=== PATIENT | female | born 1945 | race Two or more races ===

== ENCOUNTER 2017-07-03 14:06 | Outpatient (CLI) | payer OTHER ==
[~2017-07-03 14:06] MED LIST: CATAFLAM50 MG PO; CIPRO500 MG PO; RECTICARE30 GM TP; ULTRACET PO
== END 2017-07-03 17:00 | disposition home or self-care (01) ==
LOC: MAMO-SONO 14:06
DX: Z12.31 Encounter for screening mammogram for malignant neoplasm of breast (principal); Z87.898 Personal history of other specified conditions; Z12.39 Encounter for other screening for malignant neoplasm of breast

== ENCOUNTER 2017-08-12 07:18 | Outpatient (CLI) | payer OTHER | END 2017-08-12 17:00 | disposition home or self-care (01) | LOC: MRI 07:18 | DX: K86.2 Cyst of pancreas (principal); R63.4 Abnormal weight loss | CPT/HCPCS: 74181; 74183; A9579 ==

== ENCOUNTER 2018-03-20 15:11 | Outpatient (CLI) | payer OTHER | END 2018-03-20 15:46 | disposition home or self-care (01) | LOC: SONOGRAMA 15:11 | DX: E03.8 Other specified hypothyroidism (principal); E04.1 Nontoxic single thyroid nodule ==

== ENCOUNTER → 2018-03-26 12:40 | Outpatient (CLI) | payer OTHER | END | disposition home or self-care (01) | LOC: LAB 12:40 | DX: K57.30 Diverticulosis of large intestine without perforation or abscess without bleeding (principal); Z51.81 Encounter for therapeutic drug level monitoring ==

== ENCOUNTER 2018-04-10 08:51 | Outpatient (CLI) | payer OTHER | END 2018-04-10 08:56 | disposition home or self-care (01) | LOC: SONOGRAMA 08:51 | DX: E04.1 Nontoxic single thyroid nodule (principal) ==

== ENCOUNTER 2018-04-24 14:45 | Outpatient (CLI) | payer OTHER | END 2018-04-24 14:55 | disposition home or self-care (01) | LOC: MRI 14:45 | DX: G30.1 Alzheimer's disease with late onset (principal) | CPT/HCPCS: 70551 ==

== ENCOUNTER 2018-05-22 08:15 | Outpatient (CLI) | payer OTHER | END 2018-05-22 08:26 | disposition home or self-care (01) | LOC: MRI 08:15 | DX: K57.30 Diverticulosis of large intestine without perforation or abscess without bleeding (principal); K85.90 Acute pancreatitis without necrosis or infection, unspecified | CPT/HCPCS: 74183; A9579; 74181 ==

== ENCOUNTER 2018-05-22 08:41 | Outpatient (CLI) | payer OTHER | END 2018-05-22 08:52 | disposition home or self-care (01) | LOC: LAB 08:41 | DX: K57.30 Diverticulosis of large intestine without perforation or abscess without bleeding (principal); Z51.81 Encounter for therapeutic drug level monitoring ==

== ENCOUNTER 2019-05-06 14:44 | Outpatient (CLI) | payer OTHER | END 2019-05-06 14:59 | disposition home or self-care (01) | LOC: NUCLEAR 14:44 | DX: M81.0 Age-related osteoporosis without current pathological fracture (principal) ==

== ENCOUNTER → 2019-05-09 08:20 | Outpatient (CLI) | payer OTHER | END | disposition home or self-care (01) | LOC: LAB 08:20 | DX: E03.8 Other specified hypothyroidism (principal); E11.65 Type 2 diabetes mellitus with hyperglycemia; E78.2 Mixed hyperlipidemia; D64.89 Other specified anemias; N39.0 Urinary tract infection, site not specified; E55.9 Vitamin D deficiency, unspecified; K30 Functional dyspepsia; K86.2 Cyst of pancreas; K86.1 Other chronic pancreatitis; M17.0 Bilateral primary osteoarthritis of knee ==

== ENCOUNTER 2019-05-18 07:43 | Outpatient (CLI) | payer OTHER | END 2019-05-18 07:45 | disposition home or self-care (01) | LOC: MRI 07:43 | DX: K30 Functional dyspepsia (principal); K86.2 Cyst of pancreas; K86.1 Other chronic pancreatitis | CPT/HCPCS: 74183; A9575 ==

== ENCOUNTER 2019-08-12 10:58 | Emergency (ER) | payer OTHER ==
[~2019-08-12] VITALS: Ht 154.9 cm; Wt 61.2 kg
[2019-08-12] MEDS ORDERED: FOSAMAX PLUS D1 EACH PO (11:09)
[2019-08-12] MEDS ORDERED: SYNTHROID75 MCG PO (11:09)
[2019-08-12] MEDS ORDERED: SIMVASTATIN40 MG PO (11:10)
[2019-08-12] MEDS ORDERED: ORPHENADRINE C100 MG PO (16:29)
[2019-08-12] MEDS ORDERED: KETO10TA2 PO (16:29)
== END 2019-08-12 16:56 | disposition home or self-care (01) ==
LOC: ER 10:58
DX: M54.5 Low back pain (principal)

== ENCOUNTER 2019-08-14 10:17 | Outpatient (CLI) | payer OTHER ==
[~2019-08-14 10:17] MED LIST changes: +FOSAMAX PLUS D1 EACH PO; +KETO10TA2 PO; +ORPHENADRINE C100 MG PO; +SIMVASTATIN40 MG PO; +SYNTHROID75 MCG PO
== END 2019-08-14 10:20 | disposition home or self-care (01) ==
LOC: RAD 10:17
DX: M25.551 Pain in right hip (principal); M25.552 Pain in left hip

== ENCOUNTER 2019-11-25 14:33 | Outpatient (CLI) | payer OTHER ==
[~2019-11-25 14:33] MED LIST changes: +NAPR500T14 PO
== END 2019-11-25 14:37 | disposition home or self-care (01) ==
LOC: SONOGRAMA 14:33
PROVIDERS: ATTEND Internal Medicine Endocrinology, Diabetes & Metabolism
DX: E04.1 Nontoxic single thyroid nodule (principal)

== ENCOUNTER 2020-02-20 10:39 | Outpatient (CLI) | payer OTHER | END 2020-02-20 10:49 | disposition home or self-care (01) | LOC: RAD 10:39 | PROVIDERS: ATTEND Internal Medicine Rheumatology | DX: M17.0 Bilateral primary osteoarthritis of knee (principal); M51.85 Other intervertebral disc disorders, thoracolumbar region ==

== ENCOUNTER 2020-08-11 14:01 | Outpatient (CLI) | payer OTHER | END 2020-08-11 14:13 | disposition home or self-care (01) | LOC: MAMO-SONO 14:01 | PROVIDERS: ATTEND Internal Medicine Endocrinology, Diabetes & Metabolism | DX: Z12.31 Encounter for screening mammogram for malignant neoplasm of breast (principal); Z87.898 Personal history of other specified conditions; N61.0 Mastitis without abscess; N64.4 Mastodynia ==

== ENCOUNTER → 2021-02-21 | Outpatient (CLI) | payer OTHER | END | disposition home or self-care (01) | LOC: RAD 13:22 | PROVIDERS: ATTEND Internal Medicine Rheumatology | DX: M17.0 Bilateral primary osteoarthritis of knee (principal) ==

== ENCOUNTER → 2021-03-07 13:31 | Outpatient (CLI) | payer OTHER | END | disposition home or self-care (01) | LOC: NUCLEAR 13:31 | PROVIDERS: ATTEND Internal Medicine Endocrinology, Diabetes & Metabolism | DX: M81.0 Age-related osteoporosis without current pathological fracture (principal) ==

== ENCOUNTER 2021-09-18 11:49 | Emergency (ER) | payer OTHER ==
[~2021-09-18] VITALS: Ht 149.9 cm; Wt 61.7 kg
[2021-09-18] MEDS ORDERED: METOPROLOL SUCC25 MG PO (12:23)
[2021-09-18] MEDS ORDERED: ZITHROMAX500 MG PO (15:52)
== END 2021-09-18 16:53 | disposition home or self-care (01) ==
LOC: ER 11:49
DX: B34.9 Viral infection, unspecified (principal); I10 Essential (primary) hypertension; Z20.822 Contact with and (suspected) exposure to COVID-19

== ENCOUNTER 2021-10-31 14:45 | Outpatient (CLI) | payer OTHER ==
[~2021-10-31 14:45] MED LIST changes: +METOPROLOL SUCC25 MG PO; +ZITHROMAX500 MG PO
== END 2021-10-31 15:10 | disposition home or self-care (01) ==
LOC: MAMO-SONO 14:45
PROVIDERS: ATTEND Internal Medicine Endocrinology, Diabetes & Metabolism
DX: N64.4 Mastodynia (principal); E04.1 Nontoxic single thyroid nodule

== ENCOUNTER 2021-12-05 07:24 | Outpatient (CLI) | payer OTHER | END 2021-12-05 07:47 | disposition home or self-care (01) | LOC: TOM 07:24 → MRI 07:24 | PROVIDERS: ATTEND Internal Medicine Gastroenterology | DX: K86.1 Other chronic pancreatitis (principal) | CPT/HCPCS: 74183; Q9965; 74182 ==

== ENCOUNTER 2022-02-21 07:06 | Outpatient (CLI) | payer OTHER | END 2022-02-21 07:17 | disposition home or self-care (01) | LOC: SONOGRAMA 07:06 → MAMO-SONO 07:06 | PROVIDERS: ATTEND Internal Medicine Endocrinology, Diabetes & Metabolism | DX: E04.1 Nontoxic single thyroid nodule (principal); M17.9 Osteoarthritis of knee, unspecified ==

== ENCOUNTER 2022-05-23 14:44 | Outpatient (CLI) | payer OTHER | END 2022-05-23 14:49 | disposition home or self-care (01) | LOC: LAB 14:44 | PROVIDERS: ATTEND Internal Medicine Gastroenterology | DX: Z11.52 Encounter for screening for COVID-19 (principal); Z20.822 Contact with and (suspected) exposure to COVID-19; Z20.828 Contact with and (suspected) exposure to other viral communicable diseases ==

== ENCOUNTER → 2022-07-31 | Outpatient (CLI) | payer OTHER | END | disposition home or self-care (01) | LOC: RAD 14:43 | PROVIDERS: ATTEND Otolaryngology | DX: R05.1 Acute cough (principal) ==

== ENCOUNTER 2022-08-07 13:48 | Outpatient (CLI) | payer OTHER | END 2022-08-07 14:00 | disposition home or self-care (01) | LOC: TOM 13:48 | PROVIDERS: ATTEND Otolaryngology | DX: M54.2 Cervicalgia (principal); R59.1 Generalized enlarged lymph nodes ==

== ENCOUNTER 2022-08-09 08:14 | Outpatient (CLI) | payer OTHER | END 2022-08-09 08:20 | disposition home or self-care (01) | LOC: SONOGRAMA 08:14 | PROVIDERS: ATTEND Pathology Anatomic Pathology & Clinical Pathology | DX: D44.0 Neoplasm of uncertain behavior of thyroid gland (principal); E07.9 Disorder of thyroid, unspecified; E04.2 Nontoxic multinodular goiter ==

== ENCOUNTER → 2022-09-12 | Outpatient (CLI) | payer OTHER | END | disposition home or self-care (01) | LOC: RAD 14:37 | PROVIDERS: ATTEND Orthopaedic Surgery | DX: M25.562 Pain in left knee (principal); M25.561 Pain in right knee ==

== ENCOUNTER 2022-09-27 12:47 | Emergency (ER) | payer OTHER ==
[~2022-09-27] VITALS: Ht 152.4 cm; Wt 61.2 kg
== END 2022-09-27 15:54 | disposition home or self-care (01) ==
LOC: ER 12:47
DX: J02.8 Acute pharyngitis due to other specified organisms (principal); Z20.822 Contact with and (suspected) exposure to COVID-19

== ENCOUNTER 2022-12-20 07:15 | Inpatient (IN) | payer OTHER ==
[~2022-12-20] VITALS: Ht 154.9 cm; Wt 61.2 kg
[2022-12-25] MEDS ORDERED: LATANOPROST2.5 ML (16:03)
[2022-12-25] MEDS ORDERED: FAMOTIDINE40 MG (16:03)
[2022-12-25] MEDS ORDERED: BRIMONIDINE-TIMO5 ML (16:03)
[2022-12-26] MEDS ORDERED: CEFADROXIL500 MG PO (08:14)
[2022-12-26] MEDS ORDERED: ELIQUIS2.5 MG PO (08:14)
[2022-12-26] MEDS ORDERED: PERCOCET 5-3251 EACH PO (08:14)
== END 2022-12-27 22:56 | DRG 470 ==
LOC: O/R 12-25 06:40 → SURG 12-25 07:15
PROVIDERS: ADMIT Orthopaedic Surgery; ATTEND Orthopaedic Surgery
PROC: 8E0Y0CZ Robotic Assisted Procedure of Lower Extremity, Open Approach (ICD-10-PCS; 2022-12-25)
PROC: 0SRC0J9 Replacement of Right Knee Joint with Synthetic Substitute, Cemented, Open Approach (ICD-10-PCS; principal; 2022-12-25 17:15)
DX: M17.11 Unilateral primary osteoarthritis, right knee (principal); D62 Acute posthemorrhagic anemia; M22.11 Recurrent subluxation of patella, right knee; E03.9 Hypothyroidism, unspecified; Z96.651 Presence of right artificial knee joint

== ENCOUNTER 2023-03-26 14:35 | Outpatient (CLI) | payer OTHER ==
[~2023-03-26 14:35] MED LIST changes: +BRIMONIDINE-TIMO5 ML; +CEFADROXIL500 MG PO; +ELIQUIS2.5 MG PO; +FAMOTIDINE40 MG; +LATANOPROST2.5 ML; +PERCOCET 5-3251 EACH PO
== END 2023-03-26 14:42 | disposition home or self-care (01) ==
LOC: MAMO-SONO 14:35
PROVIDERS: ATTEND Family Medicine
DX: Z12.31 Encounter for screening mammogram for malignant neoplasm of breast (principal)

== ENCOUNTER 2023-09-11 12:26 | Outpatient (CLI) | payer OTHER | END 2023-09-11 12:39 | disposition home or self-care (01) | LOC: SONOGRAMA 12:26 | PROVIDERS: ATTEND Family Medicine | DX: Z12.31 Encounter for screening mammogram for malignant neoplasm of breast (principal); N60.29 Fibroadenosis of unspecified breast; D21.0 Benign neoplasm of connective and other soft tissue of head, face and neck ==

== ENCOUNTER 2023-11-29 07:20 | Inpatient (IN) | payer OTHER ==
[~2023-11-29] VITALS: Ht 152.4 cm; Wt 62.6 kg
[2023-11-29 08:18] LABS: HEMATOCRIT 35.2 % (36.0-45.00); HEMOGLOBIN 11.8 g/dL (12.0-15.00); MEAN CELL VOLUME 86.2 fL (80.00-100.00); MEAN CORPUSCULAR HEMOGLOBIN 28.9 pg (27.00-32.0); MEAN CORPUSCULAR HGB CONC 33.5 g/dl (32.0-36.0); PLATELET COUNT 343 K/uL (150-450); RED BLOOD COUNT 4.08 M/uL (4.00-6.00); RED CELL DISTRIBUTION WIDTH 15.8 % (11.5-14.5)
[2023-11-29 08:22] LABS: PH,URINE 6.5 (5.0-8.0); URINE APPEARANCE Clear; URINE BILIRRUBIN Negative (NEGATIVE); URINE BLOOD Trace; URINE COLOR Yellow; URINE GLUCOSE Negative (NEGATIVE); URINE LEUKOCYTE Moderate; URINE NITRATE Negative; URINE PROTEIN Negative (NEGATIVE); URINE UROBILINOGEN 0.2 E.U./dl
[2023-11-29 08:27] LABS: URINE BACTERIA 1950.3 uL (0.0-1933); URINE EPITHELIAL CELLS 57.7 uL (0.0-38.8); URINE RBC 18.1 uL (0.0-20.8); URINE WBC 70.4 uL (0.0-23.2)
[2023-11-29 08:52] LABS: INR 0.96; PARTIAL THROMBOPLASTIN TIME 28.6 SECONDS (22.0-34.0); PROTHROMBIN TIME 10.1 SECONDS (9.0-11.5)
[2023-11-29 10:11] LABS: URINE YEAST FEW /hpf
[2023-11-29 10:21] LABS: ALBUMIN 3.8 gm/dL (3.4-5.0); BILIRUBIN TOTAL 0.48 mg/dL (0.3-1.2); CALCIUM 9.1 mg/dL (8.5-10.1); CREATININE SERUM 0.55 mg/dL (0.55-1.02); GFR 106.9; GLOBULINA 3.8 G/DL (2.4-3.5); POTASSIUM 4.42 mEq/L (3.5-5.1); TOTAL PROTEIN 7.6 gm/dL (6.4-8.2)
[2023-12-10] MEDS ORDERED: DONEPEZIL HCL5 MG (10:47)
[2023-12-10] MEDS ORDERED: BISOPROLOL FUMAR5 MG (10:47)
[2023-12-10] MEDS ORDERED: GABAPENTIN300 M2 (10:47)
[2023-12-10] MEDS ORDERED: MORPHINE SULFATE 4 MG/ML CARTRIDGE IV PRN (13:45)
[2023-12-10] MEDS ORDERED: SODIUM CHLORIDE 0.45 % 1,000 ML IV SCH (13:45)
[2023-12-10] MEDS ORDERED: OxyCODONE HCL 5 MG TABLET (ROXICODONE) PO PRN (13:45)
[2023-12-10] MEDS ORDERED: ONDANSETRON HCL 2 MG/ML VIAL IV PRN (13:45)
[2023-12-10] MEDS ORDERED: TRANEXAMIC ACID 100MG/1ML (1000MG) AMPUL IV ONE ×2 (14:30)
[2023-12-10] MEDS ORDERED: CEFAZOLIN SODIUM 1,000 MG VIAL IV ONE (14:30)
[2023-12-10] MEDS ORDERED: KETOROLAC TROMETHAMINE 60 MG VIAL IM ONE (14:30)
[2023-12-10] MEDS ORDERED: MORPHINE SULFATE 4 MG/ML VIAL IV ONE (14:30)
[2023-12-10] MEDS ORDERED: CEFAZOLIN SODIUM 1,000 MG VIAL IV SCH (17:00)
[2023-12-10] MEDS ORDERED: GABAPENTIN 300 MG CAPSULE PO SCH (17:00)
[2023-12-10] MEDS ORDERED: ACETAMINOPHEN 500 MG GEL..CAP PO SCH (18:00)
[2023-12-11 07:00] LABS: HEMATOCRIT 35.5 % (36.0-45.00); HEMOGLOBIN 11.8 g/dL (12.0-15.00); MEAN CELL VOLUME 84.7 fL (80.00-100.00); MEAN CORPUSCULAR HEMOGLOBIN 28.2 pg (27.00-32.0); MEAN CORPUSCULAR HGB CONC 33.3 g/dl (32.0-36.0); PLATELET COUNT 352 K/uL (150-450); RED BLOOD COUNT 4.19 M/uL (4.00-6.00); RED CELL DISTRIBUTION WIDTH 15.7 % (11.5-14.5)
[2023-12-11] MEDS ORDERED: PERCOCET 5-3251 EACH PO (07:56)
[2023-12-11] MEDS ORDERED: CEFADROXIL500 MG PO (07:56)
[2023-12-11] MEDS ORDERED: ELIQUIS2.5 MG PO (07:56)
[2023-12-11] MEDS ORDERED: APIXABAN 2.5 MG TABLET PO SCH ×3 (09:00→17:00)
[2023-12-11] MEDS ORDERED: SENNOSIDES 1 TAB TABLET PO SCH (09:00)
[2023-12-11] MEDS ORDERED: SOD FERRIC GLUC COMPLX/SUCROSE 62.5 MG/5 ML AMPUL IV SCH (17:00)
[2023-12-11] MEDS ORDERED: Cyanocobalamin/Mecobalamin 1 TAB.SL SL SCH (17:00)
[2023-12-11] MEDS ORDERED: VITAMIN B COMPLEX 1 EACH PO SCH (17:00)
[2023-12-12 07:34] LABS: HEMATOCRIT 33.1 % (36.0-45.00); HEMOGLOBIN 10.8 g/dL (12.0-15.00); MEAN CORPUSCULAR HEMOGLOBIN 27.9 pg (27.00-32.0); MEAN CORPUSCULAR HGB CONC 32.8 g/dl (32.0-36.0); PLATELET COUNT 330 K/uL (150-450); RED BLOOD COUNT 3.89 M/uL (4.00-6.00); RED CELL DISTRIBUTION WIDTH 15.6 % (11.5-14.5)
[2023-12-12] MEDS ORDERED: IRON FUM,PS/FOLIC ACID/VITC/B3 1 CAP CAPSULE PO SCH (09:00)
== END 2023-12-12 14:21 | disposition home or self-care (01) | DRG 470 ==
LOC: OB/GYN 12-10 06:36 → O/R 12-10 06:36 → SURH 12-10 07:30 → OB/GYN 12-10 15:39
PROVIDERS: ADMIT Orthopaedic Surgery; ATTEND Orthopaedic Surgery
PROC: 0MNN0ZZ Release Right Knee Bursa and Ligament, Open Approach (ICD-10-PCS; 2023-12-10)
PROC: 0SUD07Z Supplement Left Knee Joint with Autologous Tissue Substitute, Open Approach (ICD-10-PCS; 2023-12-10)
PROC: 0SRD0J9 Replacement of Left Knee Joint with Synthetic Substitute, Cemented, Open Approach (ICD-10-PCS; principal; 2023-12-10 10:15)
DX: M17.12 Unilateral primary osteoarthritis, left knee (principal); M22.12 Recurrent subluxation of patella, left knee

== ENCOUNTER 2024-01-17 11:41 | Outpatient (CLI) | payer OTHER ==
[~2024-01-17 11:41] MED LIST changes: +BISOPROLOL FUMAR5 MG; +DONEPEZIL HCL5 MG; +GABAPENTIN300 M2
[2024-01-17 12:15] LABS: HEMATOCRIT 32.6 % (36.0-45.00); HEMOGLOBIN 10.7 g/dL (12.0-15.00); MEAN CELL VOLUME 86.1 fL (80.00-100.00); MEAN CORPUSCULAR HEMOGLOBIN 28.3 pg (27.00-32.0); MEAN CORPUSCULAR HGB CONC 32.9 g/dl (32.0-36.0); PLATELET COUNT 379 K/uL (150-450); RED BLOOD COUNT 3.79 M/uL (4.00-6.00); RED CELL DISTRIBUTION WIDTH 15.9 % (11.5-14.5)
[2024-01-17 12:38] LABS: PH,URINE 5.5 (5.0-8.0); URINE APPEARANCE Clear; URINE BILIRRUBIN Negative (NEGATIVE); URINE COLOR Yellow; URINE GLUCOSE Negative (NEGATIVE); URINE KETONE Negative (NEGATIVE); URINE LEUKOCYTE Negative; URINE NITRATE Negative; URINE PROTEIN Negative (NEGATIVE); URINE UROBILINOGEN 0.2 E.U./dl
[2024-01-17 12:42] LABS: URINE BACTERIA 61.7 uL (0.0-1933); URINE EPITHELIAL CELLS 24.2 uL (0.0-38.8); URINE RBC 8.8 uL (0.0-20.8); URINE WBC 1.8 uL (0.0-23.2)
[2024-01-17 12:45] LABS: URINE CAST 0.15 uL (0.0-1.40)
[2024-01-17 12:46] LABS: URINE BLOOD TRACE
[2024-01-17 13:26] LABS: ALBUMIN 3.7 gm/dL (3.4-5.0); BILIRUBIN TOTAL 0.32 mg/dL (0.3-1.2); CALCIUM 9.2 mg/dL (8.5-10.1); CHOL HDL RATIO 4.8 (0-5.0); CREATININE SERUM 0.52 mg/dL (0.55-1.02); FREE TRIODOTIRONINE 2.37 pg/ml (2.18-3.98); GFR 114.04; GLOBULINA 3.6 G/DL (2.4-3.5); POTASSIUM 4.45 mEq/L (3.5-5.1); T4 FREE 1.23 NG/ML (0.76-1.46); TOTAL PROTEIN 7.3 gm/dL (6.4-8.2); TSH 3.49 uIU/mL (0.358-3.74)
== END 2024-01-17 11:44 | disposition home or self-care (01) ==
LOC: LAB 11:41
PROVIDERS: ATTEND Internal Medicine Endocrinology, Diabetes & Metabolism
DX: E03.9 Hypothyroidism, unspecified (principal); D64.9 Anemia, unspecified; E78.2 Mixed hyperlipidemia; I10 Essential (primary) hypertension; E55.9 Vitamin D deficiency, unspecified; N39.0 Urinary tract infection, site not specified

== ENCOUNTER 2024-02-24 07:18 | Outpatient (CLI) | payer OTHER | END 2024-02-24 07:22 | disposition home or self-care (01) | LOC: SONOGRAMA 07:18 | PROVIDERS: ATTEND Internal Medicine Gastroenterology | DX: R10.13 Epigastric pain (principal); K57.30 Diverticulosis of large intestine without perforation or abscess without bleeding; Z86.010 Personal history of colon polyps ==

== ENCOUNTER 2024-05-15 12:46 | Outpatient (CLI) | payer OTHER | END 2024-05-15 12:48 | disposition home or self-care (01) | LOC: NUCLEAR 12:46 | PROVIDERS: ATTEND General Practice | DX: M81.0 Age-related osteoporosis without current pathological fracture (principal); G31.84 Mild cognitive impairment of uncertain or unknown etiology | CPT/HCPCS: 77080; 78803; A9557 ==

== ENCOUNTER 2024-05-22 10:36 | Outpatient (CLI) | payer OTHER | END 2024-05-22 10:38 | disposition home or self-care (01) | LOC: MAMO-SONO 10:36 | PROVIDERS: ATTEND Family Medicine | DX: N60.29 Fibroadenosis of unspecified breast (principal); Z12.31 Encounter for screening mammogram for malignant neoplasm of breast ==

== ENCOUNTER 2024-09-18 11:36 | Outpatient (CLI) | payer OTHER | END 2024-09-18 11:45 | disposition home or self-care (01) | LOC: RAD 11:36 | PROVIDERS: ATTEND Family Medicine | DX: G89.11 Acute pain due to trauma (principal); M46.49 Discitis, unspecified, multiple sites in spine ==

== ENCOUNTER 2024-12-18 07:56 | Outpatient (CLI) | payer OTHER | END 2024-12-18 08:00 | disposition home or self-care (01) | LOC: TOM 07:56 | PROVIDERS: ATTEND Internal Medicine Endocrinology, Diabetes & Metabolism | DX: E04.1 Nontoxic single thyroid nodule (principal) ==

== ENCOUNTER 2025-04-16 10:36 | Outpatient (CLI) | payer OTHER | END 2025-04-16 10:40 | disposition home or self-care (01) | LOC: SONOGRAMA 10:36 | PROVIDERS: ATTEND Internal Medicine Endocrinology, Diabetes & Metabolism | DX: E04.1 Nontoxic single thyroid nodule (principal) ==